=== PATIENT | female | born 1985 | race Caucasian/White ===

== ENCOUNTER 2020-09-01 04:41 | Inpatient (IN) | payer OTHER ==
[2020-09-01] MEDS ORDERED: miSOPROStol 100 MCG TAB ONE (04:58)
[2020-09-01] MEDS ORDERED: LIDOCAINE (2%) 20 MG/1 ML VIAL 20 ML MDV INFILTRATI ONE ×2 (05:00→05:38)
[2020-09-01] MEDS ORDERED: OXYTOCIN DRIP 30,000 MILLIUNITS/500 ML BAG IV ONE ×2 (05:01→05:32)
[2020-09-01] MEDS ORDERED: ePHEDrine SULFATE 50 MG/1 ML INJ IV PRN (05:38)
[2020-09-01] MEDS ORDERED: MINERAL OIL 30 ML ORAL LIQD PO PRN (05:38)
[2020-09-01] MEDS ORDERED: TERBUTALINE 1 MG/1 ML INJ SUB-Q PRN (05:38)
[2020-09-01] MEDS ORDERED: LACTATED RINGERS 1,000 ML IV SCH (05:45)
--- NOTE | 2020-09-01 05:45 | History and Physical Report ---
History of Present Illness Date of examination: 09/01/20 Chief complaint: leakage of fluid at 3am this morning and painful contractions History of present illness: at 37.2wks by EDC per pt report. care at [facility] and no records available. Pt came with family member that gave history of SROM at 3am today, admits to movement and painful contractions with pt screaming and denies vaginal bleeding or headache. Pt speaks setswana only. Past History Past Medical History: other (Gestational diabetes this ) Past Surgical History: no surgical history Family/Genetic History: none Social history: no significant social history - Obstetrical History : 4 (Gest DM this preg, diet controlled) Para: 2 Number of Living Children: 2 Review of Systems All systems: negative (SROM and painful ctx at term) - Vital Signs Vital signs: Vital Signs Pulse BP 71 111/54 09/01/20 05:36 09/01/20 05:36 Temp Pulse Resp BP Pulse Ox 71 111/54 09/01/20 05:36 09/01/20 05:36 - Physical Exam Breasts: Positive: deferred Cardiovascular: Regular rate Lungs: Positive: Normal air movement Abdomen: Positive: soft, other (non-tender gravid ) Genitourinary (Female): Positive: normal external genitalia Vulva: both: normal Extremities: Positive: normal - Obstetrical FHR: category 1 Uterine Contraction Monitor Mode: External Cervical Dilatation: 10 (On admit pt was 9cm per nurse report) Cervical Effacement Percentage: 100 station: -1 Results All other labs normal. Assessment and Plan Term preg with SROM, now complete and ready to push 1. Admit to labor and delivery and give pain meds as needed 2. Obtain labs later today 3. Send walk in labs 4. Expect . Please see delivery note
--- NOTE | 2020-09-01 05:58 | Procedure Note ---
OB Delivery Note - Delivery Date of Delivery: 09/01/20 Surgeon: TJ GONZALES Estimated blood loss: 1000cc - Vaginal Delivery presentation: vertex Delivery position: OA Intrapartum events: hemorrhage, other(please specify) (Gestational diabetes diet controlled) Delivery induction: none Delivery monitor: external FHT Route of delivery: Delivery placenta: spontaneous Episiotomy: none Delivery laceration: 1st degree, 2nd degree, other (mid-urethral 1st degree laceration and 2nd degree laceration perineum) Delivery repair: chromic Anesthesia: local (2% lidocaine) Delivery comments: Precipitous vaginal delivery of viable male infant, pt screaming and closing her legs and moving upwards in bed. Sustained 1st degree mid-urethral laceration and left perineal laceration and both repaired with 2-0 chromic running locked suture with excellent hemostasis. Spontaneous delivery of intact placenta with 3vessel cord and uterine atony treated with cytotec 800mcg per rectum and IV pitocin and bimanual exam with evacuation of clots x2. Mother and baby stable. Pt to be given ancef 2gm IVPB. No labs drawn pre delivery and labs sent post delivery. Pt with normal vital signs post delivery. - A at 1 minute: 8 at 5 minutes: 9 Infant Gender: Male (wt 3377g)
[2020-09-01] MEDS ORDERED: miSOPROStol 200 MCG TAB PR ONE (05:59)
[2020-09-01] MEDS ORDERED: OXYTOCIN DRIP 30 UNITS/500 ML BAG IV SCH ×3 (06:00→08:00)
[2020-09-01 06:30] LABS: Hematocrit 33.3 % (30.3-42.9); Hemoglobin 11.8 gm/dl (10.1-14.3); Mean Corpuscular HGB Conc 35 % (30-34); Mean Corpuscular Volume 87 fl (79-97); Platelet Count 340 K/mm3 (140-440); Red Blood Count 3.83 M/mm3 (3.65-5.03); Red Cell Distribution Width 13.8 % (13.2-15.2)
[2020-09-01] MEDS ORDERED: ceFAZolin/Water 2 GM/20 ML 2 GM/20 ML SYRINGE IV NR (07:00)
[2020-09-01] MEDS ORDERED: oxyCODONE /ACETAMINOPHEN 5-325MG TAB PO PRN (08:00)
[2020-09-01] MEDS ORDERED: diphenhydrAMINE 25 MG CAP PO PRN (08:00)
[2020-09-01] MEDS ORDERED: LANOLIN/ZINC/DIMETHICONE (LANSINOH) 7 GM TP PRN (08:00)
[2020-09-01] MEDS ORDERED: WITCH HAZEL/ GLYCERIN PAD TP PRN (08:00)
[2020-09-01] MEDS ORDERED: PROMETHAZINE 25 MG TAB PO PRN (08:00)
[2020-09-01] MEDS ORDERED: PROMETHAZINE 25 MG RECT SUPP PR PRN (08:00)
[2020-09-01] MEDS ORDERED: ONDANSETRON 4 MG/2 ML INJ IV PRN (08:00)
[2020-09-01] MEDS: IBUPROFEN 600 MG TAB PO SCH ×3 (08:25→23:24)
[2020-09-01] MEDS ORDERED: MAGNESIUM HYDROXIDE (MOM) ORAL LIQD UDC PO PRN (22:00)
[2020-09-02] MEDS: IBUPROFEN 600 MG TAB PO SCH (06:15)
[2020-09-02 06:38] LABS: Hematocrit 27.5 % (30.3-42.9); Hemoglobin 9.2 gm/dl (10.1-14.3); Mean Corpuscular HGB Conc 34 % (30-34); Mean Corpuscular Volume 88 fl (79-97); Platelet Count 258 K/mm3 (140-440); Red Blood Count 3.11 M/mm3 (3.65-5.03); Red Cell Distribution Width 13.9 % (13.2-15.2)
--- NOTE | 2020-09-02 13:36 | Progress Note ---
Assessment and Plan A: PP Day #1 Asymptomatic Anemia P: Follow Routine Orders FeSO4 325mg PO BID D/C home today per patient request RTO in 6 Weeks Subjective - Subjective Date of service: 09/02/20 Patient reports: appetite normal, voiding normally, pain well controlled, flatus, ambulating normally : doing well, bottle feeding (and ) Objective - Vital Signs Latest vital signs: Vital Signs Temp Pulse Resp BP BP Pulse Ox 09/02/20 08:41 97.9 F 75 18 101/37 09/02/20 05:09 98.0 F 68 18 94/36 97 09/02/20 00:25 97.9 F 89 18 100/35 95 09/01/20 19:50 98.6 F 66 18 117/64 09/01/20 16:05 98.3 F 81 18 91/33 97 Intake and Output 09/01/20 09/02/20 09/02/20 22:59 06:59 14:59 Intake Total 300 600 740 Output Total 900 Balance -600 600 740 Intake: Oral 740 Intake, Free Water 300 600 Output: Urine 900 Void 900 Other: Total, Intake Amount 420 Total, Output Amount 900 # Voids Void 1 1 2 - Exam Breasts: Present: normal Cardiovascular: Present: Regular rate Lungs: Present: Clear to auscultation, Normal air movement Abdomen: Present: normal appearance, soft, normal bowel sounds Uterus: Present: normal, firm, fundal height below umbilicus Extremities: Present: normal - Labs Labs: Abnormal lab results 09/02/20 Range/Units 05:48 RBC 3.11 L (3.65-5.03) M/mm3 Hgb 9.2 L (10.1-14.3) gm/dl Hct 27.5 L (30.3-42.9) %
--- NOTE | 2020-09-02 13:38 | Discharge Summary ---
Providers - Providers Date of Admission: 09/01/20 05:39 Date of discharge: 09/02/20 Attending physician: TJ GONZALES Primary care physician: TJ GONZALES Hospitalization Reason for admission: rupture of membranes Delivery: Episiotomy: none Laceration: 1st degree, 2nd degree Other procedures: none complications: none Discharge diagnosis: IUP at term delivered [place] baby: male Condition at discharge: Good Disposition: DC-01 TO HOME OR SELFCARE Plan - Provider Discharge Summary Activity: routine, no sex for 6 weeks, no heavy lifting 4 weeks, no strenuous exercise Diet: routine Instructions: routine Additional instructions: [] Smoking cessation referral if applicable(refer to patient education folder for contact #) [] Refer to [facility] Book[facility] Call your doctor immediately for: * Fever > 100.5 * Heavy vaginal bleeding ( >1 pad per hour) * Severe persistent headache * Shortness of breath * Reddened, hot, painful area to leg or breast * Drainage or odor from incision. * Keep incision clean and dry at all times and follow doctor's instructions regarding bathing/showering - Follow up plan Follow up: JT GONZALES MD [Primary Care Provider] - 6 Weeks
[2020-09-02] MEDS ORDERED: FERROUS SULFATE 325 MG TAB PO SCH (14:00)
[2020-09-02 16:48] VITALS: BP 99/34
== END 2020-09-02 15:04 | disposition home or self-care (01) | DRG 806 ==
LOC: TRG 04:41 → LD 04:42 → TRG 05:38 → LD 05:39 → OB 08:36
PROVIDERS: ADMIT Obstetrics & Gynecology; ATTEND Obstetrics & Gynecology
PROC: 10E0XZZ Delivery of Products of Conception, External Approach (ICD-10-PCS; principal; 2020-09-01)
PROC: 0KQM0ZZ Repair Perineum Muscle, Open Approach (ICD-10-PCS; 2020-09-01)
PROC: 0UQMXZZ Repair Vulva, External Approach (ICD-10-PCS; 2020-09-01)
DX: O24.420 Gestational diabetes mellitus in childbirth, diet controlled (principal); O72.1 Other immediate postpartum hemorrhage; Z37.0 Single live birth; Z3A.37 37 weeks gestation of pregnancy; Z20.822 Contact with and (suspected) exposure to COVID-19; O62.3 Precipitate labor; O71.82 Other specified trauma to perineum and vulva; O70.1 Second degree perineal laceration during delivery; O90.81 Anemia of the puerperium; D64.9 Anemia, unspecified
CPT/HCPCS: 36415; 85027; 86592; 86850; 86900; 86901; G0378; J0690; J2590; J7120; U0003